=== PATIENT | female | born 1985 | race African-American/Black ===

== ENCOUNTER 2016-12-25 19:23 | Emergency (ER) | payer OTHER ==
--- NOTE | 2016-12-25 19:36 | ED Physician Documentation ---
General Adult - HISTORIAN Historian: patient - HPI Stated Complaint: headache Chief Complaint: General Adult Onset: hours Severity: moderate Further Comments: yes (Pt is a 30 yo female with recent childbirth. Pt had pre- eclampsia and is tx'd for HTN with procardia. Pt also takes Paxil. Pt has a headache and had high BP at home with TWB=[id number]. BP here was 138/76 on presentation. 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.) - ROS CONST: no problems EYES/ENT: none CVS/RESP: none GI/: none MS/SKIN/LYMPH: none NEURO/PSYCH: headache - PAST HX Past History: other (pre-eclampsia, HTN, anxiety/depression) Surgeries/Procedures: Allergies/Adverse Reactions: Allergies Allergy/AdvReac Type Severity Reaction Status Date / Time levofloxacin [From Levaquin] AdvReac Intermediate Shortness Verified 12/25/16 19 :38 of Breath Penicillins AdvReac Intermediate Face Verified 12/25/16 19:38 Swelling baclofen AdvReac Throat Verified 12/25/16 19:38 Swelling Home Medications: Ambulatory Orders Medication Instructions Recorded Paroxetine HCl [Paxil] 40 mg PO DAILY 03/27/15 Nifedipine [Procardia] 30 mg PO DAILY 12/25/16 - SOCIAL HX Smoking History: cigarettes - FAMILY HX Family History: No - VITAL SIGNS Vital Signs: Vital Signs Temp Pulse Resp BP Pulse Ox 142/72 07/18/16 23:36 - REVIEWED ASSESSMENTS Nursing Assessment Reviewed: Yes Vitals Reviewed: Yes Progress - Progress Progress: 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 General Adult Physical Exam - PHYSICAL EXAM GENERAL APPEARANCE: no distress EENT: eye inspection normal NECK: normal inspection, supple RESPIRATORY: no resp distress, chest non-tender, breath sounds normal CVS: reg rate & rhythm, heart sounds normal ABDOMEN: soft BACK: normal inspection, no CVA tenderness SKIN: warm/dry, normal color EXTREMITIES: non-tender, normal range of motion NEURO: oriented X3, motor nml, sensation nml Discharge Clincal Impression: concern about blood pressure, transient headache Referrals: Primary Doctor,No [Primary Care Provider] - Home Medications: Ambulatory Orders Paroxetine HCl [Paxil] 40 mg PO DAILY 03/27/15 Nifedipine [Procardia] 30 mg PO DAILY 12/25/16 Condition: Good Disposition: 01 HOME, SELF-CARE Decision to Admit: NO Decision Time: 19:46
[2016-12-25 19:52] VITALS: BP 141/79
== END 2016-12-25 19:51 | disposition home or self-care (01) ==
LOC: ED 19:23
DX: R51 Headache (principal)
CPT/HCPCS: 99282

== ENCOUNTER 2017-04-06 21:18 | Emergency (ER) | payer SELFPAY ==
--- NOTE | 2017-04-06 21:48 | ED Physician Documentation ---
General Adult - HISTORIAN Historian: patient - HPI Stated Complaint: abcess left ear Chief Complaint: General Adult Further Comments: yes (31 year old female patient presents with abscess to left ear canal. Patient states she noticed the area 10 days ago, has become progressively worse, increased pain tonight.) - ROS CONST: no problems EYES/ENT: none CVS/RESP: none GI/: none MS/SKIN/LYMPH: none NEURO/PSYCH: denies: headache - PAST HX Past History: hypertension Allergies/Adverse Reactions: Allergies Allergy/AdvReac Type Severity Reaction Status Date / Time levofloxacin [From Levaquin] AdvReac Intermediate Shortness Verified 04/06/17 21 :30 of Breath Penicillins AdvReac Intermediate Face Verified 04/06/17 21:30 Swelling baclofen AdvReac Throat Verified 04/06/17 21:30 Swelling - SOCIAL HX Smoking History: non-smoker - FAMILY HX Family History: No - VITAL SIGNS Vital Signs: Vital Signs Temp Pulse Resp BP Pulse Ox 98.6 F 109 H 20 147/96 98 04/06/17 21:30 04/06/17 21:30 04/06/17 21:30 04/06/17 21:30 04/06/17 21:30 - REVIEWED ASSESSMENTS Nursing Assessment Reviewed: Yes Vitals Reviewed: Yes Procedures Site: left ear canal Blade Size: 18G needle I & D Procedure: Chlorhexidine Progress: moderate amount of thick drainage from cyst. No cellulitis, no purulent drainage. General Adult Physical Exam - PHYSICAL EXAM GENERAL APPEARANCE: mild distress EENT: eye inspection normal, ENT inspection normal, pharynx normal, no signs of dehydration, VANI, no nystagmus, TM's nml, other (sebaceous cyst noted in ear canal) RESPIRATORY: no resp distress CVS: reg rate & rhythm NEURO: oriented X3, mood/affect nml Discharge Clincal Impression: Sebaceous cyst of ear Referrals: Fredi Brooks PA [Primary Care Provider] - 2 Days Additional Instructions: Cotton ball to left ear until area heals Clean wound twice a day with soap and water Keep appointment on Thursday for re-evaluation Take Tylenol or ibuprofen on arrival home. Disposition: HOME, SELF-CARE Decision to Admit: NO Decision Time: 21:48
[2017-04-06 22:12] VITALS: BP 142/89
== END 2017-04-06 21:46 | disposition home or self-care (01) ==
LOC: ED 21:18
DX: L72.3 Sebaceous cyst (principal)
CPT/HCPCS: 10060; 87070; 99283; 99284

== ENCOUNTER 2017-04-25 08:44 | Emergency (ER) | payer OTHER ==
[2017-04-25] MEDS: KETOROLAC TROMETHAMINE 60 MG/2 ML VIAL IM ONE (09:31)
[2017-04-25 10:06] VITALS: BP 134/72
--- NOTE | 2017-04-25 10:09 | ED Physician Documentation ---
Low Back Pain - HISTORIAN Historian: patient - HPI Chief Complaint: Low Back Pain/ Injury Onset: days ago (yesterday) Duration: continues in ED Recent Injury: No Severity: moderate Worsened By:: upright position, movement to RT flexion, movement to LT flexion Relieved By: remaining still Further Comments: yes (Patient states that she has had a gradual onset of lower back pain. Is having some radiation of the pain into the anterior thighs. Laying at 45 degree is about the most comfortable position to be in.) - ROS CONST: no problems - PAST HX Past History: back pain (had similar back pain about 6 years ago). denies: arthritis, back injury Surgeries/Procedures: Allergies/Adverse Reactions: Allergies Allergy/AdvReac Type Severity Reaction Status Date / Time levofloxacin [From Levaquin] AdvReac Intermediate Shortness Verified 04/25/17 08 :56 of Breath Penicillins AdvReac Intermediate Face Verified 04/25/17 08:56 Swelling baclofen AdvReac Nausea/Vomi Verified 04/25/17 08:56 ting - SOCIAL HX Smoking History: less than 1 pack/day (1/2 ppd) Alcohol Use: none Drug Use: none - FAMILY HX Family History: no significant history - VITAL SIGNS Vital Signs: Vital Signs Temp Pulse Resp BP Pulse Ox 142/89 04/06/17 21:46 - REVIEWED ASSESSMENTS Nursing Assessment Reviewed: Yes Progress - Progress Progress: 0945 Pain is about 25%-50% better. Is sitting up at this time. ED Results Lab/Radiology - Radiology Radiology Impressions: Report Submission Date: Apr 25, 2017 9:47:48 AM CDT Patient Study Name: TSERING MULLEN Date: Apr 25, 2017 9:16:56 AM CDT Modality Type: CR Gender: F Description: SPINE : 85 Institution: [facility] Physician: ENEIDA CRAIG Lumbar spine 3 views Clinical history low back pain Technique AP lateral, and down Findings: There are 5 lumbar vertebra. Disc and vertebral body height are normal. There is no fracture or congenital anomaly. There is no spondylolysis Impression: Negative study Electronically signed on Apr 25, 2017 9:47:48 AM CDT by: Hubert Bernal - Orders Orders: ED Orders Category Date Time Status LUMBAR SPINE XR 2 OR 3 VIEWS [L SPINE 2 OR 3 VIEWS] [ Exams 04/25/17 Taken RAD] Stat Ketorolac Tromethamine [Toradol] Med 04/25/17 09:06 Discontinued 60 mg IM NOW ONE Low Back Pain/Injury - Physical Exam General Appearance: alert, moderate distress Neck: non-tender, painless ROM Resp/CVS: chest non-tender, breath sounds nml, heart sounds nml, no resp. distress, lungs clear, reg. rate & rhythm Abdomen: non-tender, no organomegaly Back: other (tenderness to palpation over the mid to lower lumbar area and perispinal area bilat) Straight Leg Raising: Positive Left (with minimal movement), Positive Right ( with minimal movement) Neuro/Psych: oriented x3, motor nml, sensation nml, bilat. doriflexion nml, reflexes nml Skin: warm/dry Discharge Clincal Impression: Low back pain Qualifiers: Chronicity: acute Back pain laterality: bilateral Sciatica presence: without sciatica Qualified Code(s): M54.5 - Low back pain Referrals: Fredi Brooks PA [Primary Care Provider] - 2 Days Additional Instructions: Home and rest. Take some Aleve 220mg tablets, two tablets twice a day with food. Supplement for pain control with hydrocodone/acetaminophen. This may cause drowsiness. If not better in 7 days to follow-up with your primary care provider. Decision to Admit: NO Date of Decison to Admit: 04/25/17 Decision Time: 10:03
--- NOTE | 2017-04-25 18:51 | Diagnostic Imaging Report ---
ENEIDA CRAIG~ [facility] [address] [facility] [address] [address] ~ ~ ~ ~ Report Submission Date: Apr 25, 2017 9:47:48 AM CDT Patient ~ Study Name: TSERING MULLEN ~ Date: Apr 25, 2017 9:16:56 AM CDT ~ Modality Type: CR Gender: F ~ Description: SPINE : 85 ~ Institution: [facility] Physician: ENEIDA CRAIG ~ ~ ~ ~ Lumbar spine 3 views Clinical history low back pain Technique AP lateral, and down Findings: There are 5 lumbar vertebra. Disc and vertebral body height are normal. There is no fracture or congenital anomaly. There is no spondylolysis Impression: Negative study ~ Electronically signed on Apr 25, 2017 9:47:48 AM CDT by: Hubert XAVIER
== END 2017-04-25 08:54 | disposition home or self-care (01) ==
LOC: ED 08:44
DX: M54.5 Low back pain (principal)
CPT/HCPCS: 72100; J1885; 96372; 99283

== ENCOUNTER 2017-11-18 20:22 | Emergency (ER) | payer SELFPAY ==
--- NOTE | 2017-11-18 20:37 | ED Physician Documentation ---
General Adult - HISTORIAN Historian: patient - HPI Stated Complaint: chest pain /left and right lower back pain Chief Complaint: General Adult Onset: other (745 this am started ) Timing: still present Severity: mild Further Comments: yes (chest pain that started at 745 this am when she was twisting and then this evening she went to turn and grab a box and she notes the pain went from mid chest to right side and she notes lower back pain with movement as well. She has not tried any OTC Meds. Denies any injury . No nausea or diaphoresis . No increase with activity) Last known Well Code/Unknown Code: Unknown - ROS CONST: denies: fever, sweating, recent illness EYES/ENT: none CVS/RESP: chest pain. denies: shortness of breath, cough GI/: denies: problems urinating, vomiting, nausea MS/SKIN/LYMPH: back pain NEURO/PSYCH: denies: headache - PAST HX Past History: hypertension Other History: none, other (depression and anxiety ) Surgeries/Procedures: none Immunizations: referred to PCP Allergies/Adverse Reactions: Allergies Allergy/AdvReac Type Severity Reaction Status Date / Time levofloxacin [From Levaquin] AdvReac Intermediate Shortness Verified 04/29/17 23 :28 of Breath Penicillins AdvReac Intermediate Face Verified 04/29/17 23:28 Swelling baclofen AdvReac Nausea/Vomi Verified 04/29/17 23:28 ting Home Medications: Ambulatory Orders Medication Instructions Recorded HYDROcodone /APAP 5/325 [Walker 1 each PO Q4 PRN #20 tablet 04/25/17 5/325] Cyclobenzaprine HCl [Flexeril] 10 mg PO Q8 PRN #20 tablet 11/18/17 Ibuprofen [Advil] 800 mg PO BID PRN #20 tablet 11/18/17 - SOCIAL HX Smoking History: non-smoker Alcohol Use: none Drug Use: none - FAMILY HX Family History: No - VITAL SIGNS Vital Signs: Vital Signs Temp Pulse Resp BP Pulse Ox 148/88 04/30/17 06:03 - REVIEWED ASSESSMENTS Nursing Assessment Reviewed: Yes Vitals Reviewed: Yes General Adult Physical Exam - PHYSICAL EXAM GENERAL APPEARANCE: no distress EENT: eye inspection normal NECK: normal inspection RESPIRATORY: no resp distress, chest non-tender, breath sounds normal CVS: reg rate & rhythm, heart sounds normal, equal pulses, no murmur ABDOMEN: soft, no organomegaly, normal bowel sounds, no distension, non-tender BACK: normal inspection SKIN: warm/dry, normal color EXTREMITIES: non-tender, normal range of motion, no evidence of injury, no edema NEURO: oriented X3, CN's nml as tested Discharge Clincal Impression: Low back pain Qualifiers: Chronicity: acute Back pain laterality: bilateral Sciatica presence: without sciatica Qualified Code(s): M54.5 - Low back pain Prescriptions: Cyclobenzaprine HCl [Flexeril] 10 mg PO Q8 PRN #20 tablet PRN Reason: Pain Ibuprofen [Advil] 800 mg PO BID PRN #20 tablet PRN Reason: Pain Or Temperature > 101 Referrals: Fredi Brooks PA [Primary Care Provider] - 2 Days Comments: Heat/Ice Cyclobenzaprine 10 mg every 8 hours as needed for muscle pain Ibuprofen 800 mg every 12 hours as needed for pain Return to ER or PCP if symptoms increase or change Increase fluids (push without caffeine) Condition: Stable Disposition: 01 HOME, SELF-CARE Decision to Admit: NO Date of Decison to Admit: 11/18/17 Decision Time: 21:15
[2017-11-18] MEDS: CYCLOBENZAPRINE HCL 5 MG TABLET PO ONE ×2 (21:20→21:27)
[2017-11-18 21:26] VITALS: BP 154/84
[2017-11-19 08:59] LABS: APPEARANCE,URINE CLOUDY (CLEAR); COLOR,URINE AMBER (YELLOW); OCCULT BLOOD,URINE NEGATIVE (NEGATIVE); PH URINE 5.5 (5.0 - 8.0)
== END 2017-11-18 21:29 | disposition home or self-care (01) ==
LOC: ED 20:22
DX: M54.5 Low back pain (principal)
CPT/HCPCS: 81002; 99283

== ENCOUNTER 2018-03-24 12:39 | Emergency (ER) | payer SELFPAY ==
[2018-03-24 12:51] VITALS: BP 112/65
--- NOTE | 2018-03-24 13:08 | ED Physician Documentation ---
Upper Respiratory Symptoms - HPI Stated Complaint: Cough Chief Complaint: Cough/ Upper Respiratory Onset: days ago (14 days) Associated Symptoms: runny nose, sinus pain, sinus drainage, sore throat, hoarseness, productive cough Further Comments: yes (32 year old female patient presents with complaint of cough, congestion, headache, sinus pressure and sinus drainage for past 10-14 days. Has not seen PCP. No OTC medications today.) - ROS CONST/EYES: denies: weakness, eye redness, eye itching CVS/RESP: none LYMPH: denies: leg swelling, rash, swollen glands, ankle swelling, other GI/: none NEURO/PSYCH: denies: fainting, dizziness, confusion, anxiety, depression, other MS/SKIN: denies: joint pain, muscle aches, rash, other - PAST HX Lung Disease: none Other History: other (depression, ) Allergies/Adverse Reactions: Allergies Allergy/AdvReac Type Severity Reaction Status Date / Time sulfamethoxazole Allergy Verified 03/24/18 13:15 [From Bactrim] trimethoprim [From Bactrim] Allergy Verified 03/24/18 13:15 levofloxacin [From Levaquin] AdvReac Intermediate Shortness Verified 03/24/18 12 :51 of Breath Penicillins AdvReac Intermediate Face Verified 03/24/18 12:51 Swelling Home Medications: Ambulatory Orders Medication Instructions Recorded LORazepam [Ativan] 1 tab PO PRN PRN 03/24/18 - SOCIAL HX Smoking History: cigarettes - FAMILY HX Family History: denies: none - VITAL SIGNS Vital Signs: Vital Signs Temp Pulse Resp BP Pulse Ox 97.5 F L 82 17 112/65 96 03/24/18 13:20 03/24/18 13:20 03/24/18 13:20 03/24/18 13:20 03/24/18 13:20 - REVIEWED ASSESSMENTS Nursing Assessment Reviewed: Yes Vitals Reviewed: Yes Progress - Progress Progress: Reviewed discharge instructions. Patient states she can take cefdinir with no adverse reaction. Patient states she will have to fill her antibiotic tomorrow, on day day. Coupon provided; discharged with written prescription. Upper Respiratory Symptoms - EXAM General Appearance: mild distress EENT: eyes nml inspection, nml ENT inspection, pain over sinuses, frontal, maxillary, ethmoid, mucosal edema, purulent nasal drainage, pharynx nml Respiratory: no resp. distress, breath sounds nml, no pain on inspiration, speaks full sentences, no pleuritic chest pain Abdomen: non-tender, no organomegaly, nml bowel sounds, no distention CVS: reg rate & rhythm, heart sounds normal, equal pulses, no murmur, no gallop , PMI nml, no JVD, no friction rub, 24 Skin: color nml, no rash, warm,dry Extremities: non-tender, normal range of motion, no evidence of injury, no edema , J, CANDY PULLER Neuro/Psych: oriented x3, neuro intact, mood/affect nml, CN's nml as tested Discharge Clincal Impression: Acute pansinusitis Referrals: Fredi Brooks PA [Primary Care Provider] - 2 Days Additional Instructions: director of academic support an over the counter decongestant such as pseudoped, dayquil and Nyquil at your pharmacy. Treat your symptoms with over the counter medication. You may want to try Vicks rub on your chest and/or feet Cough drops as needed for cough and sore throat. Increase your fluid intake juices, hot tea, non-caffeinated beverages Use a humidifier in the room where you sleep. You can also sit in a steam filled bathroom 1-2 times a day. Tylenol or Ibuprofen as needed for fever, pain and body aches. Start daily allergy medication such as Claritin, Latonia or Zyrtec. Start a daily nasal spray such as Flonase or Nasonex You may benefit from the use of a netti pot follow package instructions. See your primary care doctor after you have completed your antibiotic if you symptoms have not resolved. Many times it takes multiple rounds of antibiotics to resolve a sinus infection. Condition: Stable Disposition: 01 HOME, SELF-CARE Decision to Admit: NO Decision Time: 13:07
== END 2018-03-24 13:20 | disposition home or self-care (01) ==
LOC: ED 12:39
DX: J01.40 Acute pansinusitis, unspecified (principal)
CPT/HCPCS: 99282